=== PATIENT | female | born 1990 | race African-American/Black ===

== ENCOUNTER 2017-06-17 09:27 | Emergency (ER) | payer MEDICAID, OTHER ==
[2017-06-17 09:28] VITALS: BP 150/92; PULSE 92; RESP 15; TEMP 98.2; O2SAT 98
[2017-06-17] MEDS ORDERED: SODIUM CHLORIDE 0.9% FLUSH 10 ML FLUSH IV FLUSH PRN (09:45)
--- NOTE | 2017-06-17 09:53 | PD ---
HPI Chief Complaint: Related Problem Time Seen by Provider: 09:43 Travel History International Travel<30 days: No Contact w/Intl Traveler<30days: No Traveled to known affect area: No History of Present Illness HPI patient was seen back in april when she had an ultrasound and quant hcg of 800's, at that point a left complex ovarian cyst noted unknown if ectopic. patient was advised to return for reevaluation or see obgyn...pt did neither. pt states pain stopped so she didn't seek any further evaluation. patient now returns here for left area pain, light, sharp, 4/10, nonradiating, onset about 2hrs ago. no alleviating/aggravating factors chart and rn notes reviewed pcp none pmhx denies pshx denies all: nkda PFSH Past Medical History Immunizations Current: Yes ?: Unknown Social History Alcohol Use: No Tobacco Use: No Substance Use: No Allergies-Medications (Allergen,Severity, Reaction): Coded Allergies: No Known Allergies (Unverified , 05/17/17) Reported Meds & Prescriptions Reported Meds & Active Scripts Active Ultram (Tramadol HCl) 50 Mg Tab 50 Mg PO Q6H PRN Review of Systems Except as stated in HPI: all other systems reviewed are Neg General / Constitutional: No: Fever Eyes: No: Visual changes HENT: No: Headaches Cardiovascular: No: Chest Pain or Discomfort Respiratory: No: Shortness of Breath Gastrointestinal: Positive: Abdominal Pain Genitourinary: No: Dysuria Musculoskeletal: No: Pain Skin: No Rash Neurologic: No: Weakness Psychiatric: No: Depression Endocrine: No: Polydipsia Hematologic/Lymphatic: No: Easy Bruising Physical Exam Narrative GENERAL: SKIN: Warm and dry. HEAD: Atraumatic. Normocephalic. EYES: Pupils equal and round. No scleral icterus. No injection or drainage. ENT: No nasal bleeding or discharge. Mucous membranes pink and moist. NECK: Trachea midline. No JVD. CARDIOVASCULAR: Regular rate and rhythm. RESPIRATORY: No accessory muscle use. Clear to auscultation. Breath sounds equal bilaterally. GASTROINTESTINAL: Abdomen soft, non-tender, nondistended. MUSCULOSKELETAL: Extremities without clubbing, cyanosis, or edema. No obvious deformities. NEUROLOGICAL: Awake and alert. No obvious cranial nerve deficits. Motor grossly within normal limits. Five out of 5 muscle strength in the arms and legs. Normal speech. PSYCHIATRIC: Appropriate mood and affect; insight and judgment normal. Data Data Last Documented VS Vital Signs Date Time Temp Pulse Resp B/P (MAP) Pulse Ox O2 Delivery O2 Flow Rate FiO2 06/17/17 09:28 98.2 92 15 150/92 (111) 98 Orders Orders Basic Metabolic Panel (Bmp) (06/17/17 09:42) Beta Hcg (Quant/Titer) (06/17/17 09:42) Complete Blood Count With Diff (06/17/17 09:42) Iv Access Insert/Monitor (06/17/17 09:42) Ecg Monitoring (06/17/17 09:42) Oximetry (06/17/17 09:42) NPO (06/17/17 09:42) Sodium Chloride 0.9% Flush (Ns Flush) (06/17/17 09:45) Ed Urine Pregnancytest Poc (06/17/17 09:42) Us Pelvis (Ques Pr/Ect)W Trans (06/17/17 ) Mandatory Outpatient Referral (06/17/17 13:14) Labs Laboratory Tests Test 06/17/17 10:05 White Blood Count 4.7 TH/MM3 Red Blood Count 3.52 MIL/MM3 Hemoglobin 11.4 GM/DL Hematocrit 34.0 % Mean Corpuscular Volume 96.5 FL Mean Corpuscular Hemoglobin 32.5 PG Mean Corpuscular Hemoglobin Concent 33.7 % Red Cell Distribution Width 12.8 % Platelet Count 204 TH/MM3 Mean Platelet Volume 10.3 FL Neutrophils (%) (Auto) 67.5 % Lymphocytes (%) (Auto) 24.0 % Monocytes (%) (Auto) 6.2 % Eosinophils (%) (Auto) 1.7 % Basophils (%) (Auto) 0.6 % Neutrophils # (Auto) 3.1 TH/MM3 Lymphocytes # (Auto) 1.1 TH/MM3 Monocytes # (Auto) 0.3 TH/MM3 Eosinophils # (Auto) 0.1 TH/MM3 Basophils # (Auto) 0.0 TH/MM3 CBC Comment DIFF FINAL Differential Comment Blood Urea Nitrogen 6 MG/DL Creatinine 0.65 MG/DL Random Glucose 86 MG/DL Calcium Level 8.6 MG/DL Sodium Level 139 MEQ/L Potassium Level 3.6 MEQ/L Chloride Level 106 MEQ/L Carbon Dioxide Level 30.6 MEQ/L Anion Gap 2 MEQ/L Estimat Glomerular Filtration Rate 131 ML/MIN Human Chorionic Gonadotropin, Quant 111 MIU/ML MDM Medical Decision Making Medical Screen Exam Complete: Yes Emergency Medical Condition: Yes Medical Record Reviewed: Yes Differential Diagnosis ectopic v persistent ovarian cyst v toa v torsion v uti Narrative Course QUANT HCG IS NOW 111, NO IUP AND THE LEFT ADNEXA HYPEREMIC AREA IS STILL PRESENT. WILL CONTACT AIRLINE FLIGHT ATTENDANT TO DISCUSS FURTHER Physician Communication Physician Communication DISCUSSED WITH DR FOSTER , WHO RECC OUTPATIENT FOLLOWUP Diagnosis Primary Impression: Miscarriage Additional Impression: LEFT ADNEXAL CYST Admitting Information Admitting Physician Requests: Case Management (YOU WILL BE CONTACTED TO RECEIVE INFORMATION ABOUT AIRLINE FLIGHT ATTENDANT SPECIALIST) Patient Instructions: General Instructions, Miscarriage (ED) Scripts Tramadol (Ultram) 50 Mg Tab 50 MG PO Q6H Y for PAIN, #15 TAB 0 Refills Prov: Robert North MD 06/17/17 Disposition: 01 DISCHARGE HOME Condition: Stable Robert North MD Jun 17, 2017 09:53
[2017-06-17 11:46] LABS: AUTOMATED NEUTROPHIL # 3.1 TH/MM3 (1.8-7.7); BASOPHIL % 0.6 % (0.0-2.0); EOSINOPHIL # 0.1 TH/MM3 (0-0.4); EOSINOPHIL % 1.7 % (0.0-4.0); HEMO FLAGS DIFF FINAL; LYMPHOCYTE # 1.1 TH/MM3 (1.0-4.8); MEAN CELL VOLUME 96.5 FL (80.0-100.0); MEAN CORPUSCULAR HEMOGLOBIN 32.5 PG (27.0-34.0); MEAN CORPUSCULAR HGB CONC 33.7 % (32.0-36.0); MONO % 6.2 % (0.0-8.0); NEUT % 67.5 % (16.0-70.0); PLATELET COUNT 204 TH/MM3 (150-450); RED BLOOD COUNT 3.52 MIL/MM3 (4.00-5.30); RED CELL DISTRIBUTION WIDTH 12.8 % (11.6-17.2); WHITE BLOOD COUNT 4.7 TH/MM3 (4.0-11.0)
[2017-06-17 12:14] LABS: BICARBONATE 30.6 MEQ/L (21.0-32.0); POTASSIUM 3.6 MEQ/L (3.5-5.1)
--- NOTE | 2017-06-17 12:34 | RADRPT ---
EXAM DATE/TIME: 06/17/2017 10:22 [facility] COMPARISON: US PELVIS (QUEST PREG/ECTOPIC) W/TRANSVAG, May 17, 2017, 9:43. INDICATIONS : Left pelvic pain and bleeding for 2 weeks. LAB(S): Beta-hC MEDICAL HISTORY : . Left pelvic pain and bleeding for 2 weeks. SURGICAL HISTORY : None. ENCOUNTER: Subsequent ACUITY: 1 month PAIN SCORE: 4/10 LOCATION: Bilateral pelvis MEASUREMENTS: UTERUS: 8.7 x 3.7 x 4.9 cm ENDOMETRIAL STRIPE: 6 mm RIGHT OVARY: 3.3 x 3.7 x 3.3 cm LEFT OVARY: 3.8 x 3.5 x 3.2 cm FREE FLUID: Yes Cul-de-sac FINDINGS: UTERUS: The myometrium has homogeneous echotexture without mass. The gestational sac is not identified. The re is a small amount of fluid within the endometrial cavity. RIGHT OVARY: There is a dominant cyst in the right ovary, anechoic, with good through transmission which measures 1.1 x 1.2 cm. LEFT OVARY: There is a heterogeneous echotexture to the left ovary and, on color Doppler, there is a vessel which appears to extend centrally and to the ovary. No cystic areas seen. No adnexal fluid. MISCELLANEOUS: Moderate amount of free fluid in the cul-de-sac CONCLUSION: 1. One intrauterine cannot be identified by ultrasound. Please note that the quantitative beta hCG is only 111. 2. There is a moderate amount of free fluid in the cul-de-sac and there is some hyperemia in the myrna on of the left adnexa. An ectopic cannot be excluded, but please note that a prior ultraso und of the pelvis on 05/17/17 had demonstrated a similar complex cystic hyperemic abnormality in the l eft adnexa. 3. Obstetrical, gynecologic evaluation and followup is recommended. Naveen Hinojosa MD on June 17, 2017 at 12:28 Board Certified Radiologist. This report was verified electronically.
[2017-06-17] MEDS ORDERED: ULTR50TA5 PO (13:11)
== END 2017-06-17 14:10 | disposition home or self-care (01) ==
LOC: NEPE 09:27
DX: O03.9 Complete or unspecified spontaneous abortion without complication (principal); N83.292 Other ovarian cyst, left side
CPT/HCPCS: 76700; 76817; 80048; 84702; 84703; 85025; 99284

== ENCOUNTER 2017-07-13 17:08 | Emergency (ER) | payer MEDICAID, OTHER ==
[~2017-07-13] VITALS: Ht 152.4 cm; Wt 76.0 kg
[~2017-07-13 17:08] MED LIST: TRAM50 PO
[2017-07-13 17:15] VITALS: BP 153/93; PULSE 75; RESP 16; TEMP 97.6; O2SAT 99
[2017-07-13] MEDS ORDERED: TETANUS/DIPHTHERIA TOXOID ADULT 0.5 ML VIAL IM ONE (17:30)
--- NOTE | 2017-07-13 17:31 | PD ---
HPI Chief Complaint: Skin Problem Time Seen by Provider: 17:24 Travel History International Travel<30 days: No Contact w/Intl Traveler<30days: No Traveled to known affect area: No History of Present Illness HPI The patient is a 26-year-old after Citizen [place] female who presents to the emergency department after she accidentally cut the top of her head while cutting her hair. The patient states he has to that occurred 2 days ago, she was cutting with a edna scissors, neck the top of her scalp. She states it bled initially but is currently stopped. She now states she has a new weed in place and I am unable to visualize the spot where she cut herself. Incidentally , the patient is also requesting a test. She states she's been having some generalized weakness for a week and would like a test. She has not taken a home test because financially she was unable to afford it. She denies any current vaginal bleeding or discharge, denies any lower abdominal pain. The patient states she had a miscarriage in March. [facility] Past Medical History Medical History: Denies Significant Hx Diminished Hearing: No Immunizations Current: Yes Tetanus Vaccination: > 5 Years ?: Unknown LMP: OCT Social History Alcohol Use: No Tobacco Use: No Substance Use: No Allergies-Medications (Allergen,Severity, Reaction): Coded Allergies: No Known Allergies (Unverified , 05/17/17) Reported Meds & Prescriptions Reported Meds & Active Scripts Active No Active Prescriptions or Reported Medications Review of Systems Except as stated in HPI: all other systems reviewed are Neg Genitourinary: Positive: Other (requesting a test.) Musculoskeletal: Positive: Weakness Skin: Positive Other (as noted in the history of present illness) Physical Exam Narrative GENERAL: Awake, alert, nontoxic-appearing 26-year-old female appears her stated age is in no acute respiratory distress. SKIN: Focused skin assessment warm/dry. HEAD: Atraumatic. Normocephalic. The patient would not remove the skull, states she has been here we've in place and I would be unable to visualize the laceration. EYES: No injection or drainage. ENT: No nasal bleeding or discharge. Mucous membranes pink and moist. NECK: Trachea midline. No JVD. MUSCULOSKELETAL: No obvious deformities. No clubbing. No cyanosis. No edema. NEUROLOGICAL: Awake and alert. No obvious cranial nerve deficits. Motor grossly within normal limits. Normal speech. PSYCHIATRIC: Appropriate mood and affect; insight and judgment normal. Data Data Last Documented VS Vital Signs Date Time Temp Pulse Resp B/P (MAP) Pulse Ox O2 Delivery O2 Flow Rate FiO2 07/13/17 17:15 97.6 75 16 153/93 (113) 99 Orders Orders Tetanus/Diphtheria Tox Adult (Tetanus/Di (07/13/17 17:30) Ed Urine Pregnancytest Poc (07/13/17 17:26) [facility] Medical Decision Making Medical Screen Exam Complete: Yes Emergency Medical Condition: Yes Medical Record Reviewed: Yes Differential Diagnosis Differential diagnosis includes laceration, abrasion, contusion, . Narrative Course The patient's tetanus shot was updated. A bedside UA test was obtained. Bedside UA test was negative. The patient is advised to follow-up with her primary physician. Return if symptoms worsen or progress. Diagnosis Primary Impression: Puncture wound Patient Instructions: General Instructions Additional Instructions: Wound care instructions. Follow-up with her primary physician. Return if symptoms worsen or progress. Scripts No Active Prescriptions or Reported Meds Disposition: 01 DISCHARGE HOME Condition: Stable Lenin Anderson MD Jul 13, 2017 17:31
== END 2017-07-13 17:59 | disposition home or self-care (01) ==
LOC: PHEFT 17:08
DX: S01.03XA Puncture wound without foreign body of scalp, initial encounter (principal); R53.1 Weakness; W27.2XXA Contact with scissors, initial encounter; Y93.E8 Activity, other personal hygiene; Z23 Encounter for immunization
CPT/HCPCS: 84703; 90471; 90714; 96372

== ENCOUNTER 2017-09-10 07:44 | Emergency (ER) | payer OTHER ==
[~2017-09-10] VITALS: Ht 152.4 cm; Wt 82.0 kg
[2017-09-10 07:54] VITALS: BP 145/92; PULSE 14; PULSE 98; RESP 16; TEMP 98.1; O2SAT 99
[2017-09-10] MEDS ORDERED: FLUC150T PO (08:26)
--- NOTE | 2017-09-10 08:27 | PD ---
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 denies recent abx use. denies any actual foul smelling or dislocored vaginal d/c. denies fever/abd pain/back pain/n/v/d/ PFSH Past Medical History Diminished Hearing: No Immunizations Current: Yes ?: Unknown Social History Alcohol Use: Yes (OCC) Tobacco Use: Yes Substance Use: No Allergies-Medications (Allergen,Severity, Reaction): Coded Allergies: No Known Allergies (Verified Adverse Reaction, Unknown, 09/10/17) Reported Meds & Prescriptions Reported Meds & Active Scripts Active Fluconazole 150 Mg Tab 150 Mg PO ONCE Review of Systems Except as stated in HPI: all other systems reviewed are Neg General / Constitutional: No: Fever Eyes: No: Visual changes HENT: No: Headaches Cardiovascular: No: Chest Pain or Discomfort Respiratory: No: Shortness of Breath Gastrointestinal: No: Abdominal Pain Genitourinary: Positive: Other (white vag d/c) Musculoskeletal: No: Pain Skin: No Rash Neurologic: No: Weakness Psychiatric: No: Depression Endocrine: No: Polydipsia Hematologic/Lymphatic: No: Easy Bruising Physical Exam Narrative GENERAL: SKIN: Warm and dry. HEAD: Atraumatic. Normocephalic. EYES: Pupils equal and round. No scleral icterus. No injection or drainage. ENT: No nasal bleeding or discharge. Mucous membranes pink and moist. NECK: Trachea midline. No JVD. CARDIOVASCULAR: Regular rate and rhythm. RESPIRATORY: No accessory muscle use. Clear to auscultation. Breath sounds equal bilaterally. GASTROINTESTINAL: Abdomen soft, non-tender, nondistended. 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 No obvious deformities. NEUROLOGICAL: Awake and alert. No obvious cranial nerve deficits. Motor grossly within normal limits. Five out of 5 muscle strength in the arms and legs. Normal speech. PSYCHIATRIC: Appropriate mood and affect; insight and judgment normal. Data Data Last Documented VS Vital Signs Date Time Temp Pulse Resp B/P (MAP) Pulse Ox O2 Delivery O2 Flow Rate FiO2 09/10/17 07:54 98.1 98 16 145/92 (109) 99 Orders Orders Ed Discharge Order (09/10/17 08:28) MDM Medical Decision Making Medical Screen Exam Complete: Yes Emergency Medical Condition: Yes Medical Record Reviewed: Yes Differential Diagnosis related v yeast infection v gc v chlam Narrative Course collected and sent out gc, chlam, ua, for testing but will not await results...will be empiricallly treated for yeast infection....and neg pregn Diagnosis Primary Impression: intravaginal candidiasis Additional Instructions: use over the counter gyne-lotrimin as well for a week as well as your prescription diflucan Scripts Fluconazole (Fluconazole) 150 Mg Tab 150 MG PO ONCE for Infection, #1 TAB 0 Refills Prov: Robert North MD 09/10/17 Disposition: 01 DISCHARGE HOME Condition: Stable Robert North MD Sep 10, 2017 08:27
[2017-09-10 09:07] LABS: BACTERIA, URINE RARE /hpf; BILIRUBIN, URINE NEG (NEG); BLOOD, URINE SMALL (NEG); GLUCOSE,URINE NEG (NEG); KETONE, URINE NEG (NEG); MUCUS URINE FEW /lpf (OCC); NITRITE,URINE NEG (NEG); SQUAMOUS EPITHELIAL CELL URINE 40 /hpf (0-5); URINE COLOR YELLOW (YELLW/STRAW); URINE LEUKOCYTE ESTERASE LARGE (NEG)
[2017-09-10] MEDS ORDERED: MACR100C2 PO (09:34)
[2017-09-10 09:39] VITALS: BP 158/84
== END 2017-09-10 09:48 | disposition home or self-care (01) ==
LOC: NEPE 07:44
DX: B37.3 Candidiasis of vulva and vagina (principal); Z72.0 Tobacco use; Z79.899 Other long term (current) drug therapy
CPT/HCPCS: 81001; 84703; 87086; 87210; 87491; 87591; 99283

== ENCOUNTER 2017-10-03 15:23 | Emergency (ER) | payer OTHER ==
[~2017-10-03] VITALS: Ht 152.4 cm; Wt 93.4 kg
[~2017-10-03 15:23] MED LIST changes: +FLUC150T PO; +MACR100C2 PO; -TRAM50 PO
[2017-10-03 15:27] VITALS: BP 140/71; PULSE 73; RESP 16; TEMP 97; O2SAT 97
[2017-10-03] MEDS ORDERED: MUPI2%T TOPICAL (15:48)
--- NOTE | 2017-10-03 15:49 | PD ---
HPI Chief Complaint: Injury Time Seen by Provider: 15:33 Travel History International Travel<30 days: No Contact w/Intl Traveler<30days: No Traveled to known affect area: No History of Present Illness HPI This is a 18-year-old female here for evaluation of facial injury. She reports while getting out of shower she slipped falling forward hitting her face on the bathroom door. She denies loss of consciousness. She denies falling to the ground. She has pain in her forehead and a small abrasion to her nose. No headache. No visual changes. No epistaxis. No neck pain. No paresthesias or weakness of the extremities. Symptoms severity mild. Aggravated by palpation of the area. PFSH Past Medical History Medical History: Denies Significant Hx Diminished Hearing: No Immunizations Current: Yes ?: Not LMP: 09/28/17 Social History Alcohol Use: Yes ([facility]) Tobacco Use: Yes Substance Use: No Allergies-Medications (Allergen,Severity, Reaction): Coded Allergies: No Known Allergies (Verified Adverse Reaction, Unknown, 10/03/17) Reported Meds & Prescriptions Reported Meds & Active Scripts Active Bactroban Topical (Mupirocin) 22 Gm Cream 1 Applic TOPICAL BID Macrobid (Nitrofurantoin Monohydrate Macrocrystals) 100 Mg Capsule 100 Mg PO BID 5 Days Fluconazole 150 Mg Tab 150 Mg PO ONCE Review of Systems Except as stated in HPI: all other systems reviewed are Neg Eyes: No: Visual changes HENT: No: Headaches Cardiovascular: No: Chest Pain or Discomfort Respiratory: No: Shortness of Breath Gastrointestinal: No: Abdominal Pain Genitourinary: No: Dysuria Musculoskeletal: No: Pain Skin: No Rash Neurologic: No: Weakness Physical Exam Narrative GENERAL: Alert and well-appearing 18-year-old female SKIN: Warm and dry. Small 1 cm superficial abrasion to the right naris HEAD: Normocephalic. Mild tenderness to the left forehead. No hematoma. No palpable fracture. EYES: Pupils equal, round, reactive. EOMs intact. No injection or drainage. Orbital bones are nontender. NOSE: No deformity. Mild right nasal bone tenderness. No crepitus. No septal hematoma. No blood or drainage. NECK: Supple, trachea midline. No cervical midline tenderness. CARDIOVASCULAR: Regular rate and rhythm RESPIRATORY: Breath sounds equal bilaterally. No accessory muscle use. GASTROINTESTINAL: Abdomen soft, non-tender, nondistended. MUSCULOSKELETAL: No bony tenderness. No cyanosis, or edema. Normal strength and sensation of upper and lower extremity is. BACK: Nontender without obvious deformity. No CVA tenderness. Data Data Last Documented VS Vital Signs Date Time Temp Pulse Resp B/P (MAP) Pulse Ox O2 Delivery O2 Flow Rate FiO2 10/03/17 15:27 97.0 73 16 140/71 (94) 97 MDM Medical Decision Making Medical Screen Exam Complete: Yes Emergency Medical Condition: Yes Differential Diagnosis Facial contusion, facial fracture, abrasion Narrative Course 18-year-old female here for evaluation of facial contusion. She is well- appearing. She is a normal neurologic exam. She has mild tenderness to the right nasal bridge. Nasal bone x-rays were offered. Patient declined. Her injuries appear minor. She'll be treated for facial contusions Diagnosis Primary Impression: Facial contusion Qualified Codes: S00.83XA - Contusion of other part of head, initial encounter Referrals: Primary Care Physician Additional Instructions: Face the area. Tylenol or ibuprofen for pain. Apply antibiotic ointment to the abrasion. Follow-up with her primary doctor Return if you may or worsening symptoms Disposition: 01 DISCHARGE HOME Condition: Stable Altagracia Almazan Oct 03, 2017 15:49
== END 2017-10-03 16:00 | disposition home or self-care (01) ==
LOC: PHEFT 15:23
DX: S00.83XA Contusion of other part of head, initial encounter (principal); W01.198A Fall on same level from slipping, tripping and stumbling with subsequent striking against other object, initial encounter; Y92.002 Bathroom of unspecified non-institutional (private) residence as the place of occurrence of the external cause; Z72.0 Tobacco use; Z79.899 Other long term (current) drug therapy
CPT/HCPCS: 99282

== ENCOUNTER 2017-10-10 17:07 | Emergency (ER) | payer OTHER ==
[~2017-10-10] VITALS: Ht 152.4 cm; Wt 75.0 kg
[2017-10-10 17:10] VITALS: BP 140/75; PULSE 90; RESP 14; TEMP 97.9; O2SAT 99
[2017-10-10] MEDS ORDERED: PERM5CRE11 TOPICAL (18:55)
--- NOTE | 2017-10-10 18:55 | PD ---
HPI Chief Complaint: Skin Problem Time Seen by Provider: 18:47 Travel History International Travel<30 days: No Contact w/Intl Traveler<30days: No History of Present Illness HPI 26-year-old female complains of scabies exposure. Patient states that her boyfriend was treated with scabies yesterday. Patient has been washing question linens and clothes at home with hot water. Patient denies any itching rash. Patient denies any chance of being . PFSH Past Medical History Medical History: Denies Significant Hx Diminished Hearing: No Immunizations Current: Yes Tetanus Vaccination: < 5 Years Influenza Vaccination: No ?: Not LMP: 09/18/17 Past Surgical History Surgical History: No Previous Surgery Social History Alcohol Use: Yes (OCCASIONAL) Tobacco Use: No Substance Use: No Allergies-Medications (Allergen,Severity, Reaction): Coded Allergies: No Known Allergies (Verified Adverse Reaction, Unknown, 10/03/17) Reported Meds & Prescriptions Reported Meds & Active Scripts Active Review of Systems General / Constitutional: No: Fever Eyes: No: Visual changes HENT: No: Headaches Cardiovascular: No: Chest Pain or Discomfort Respiratory: No: Shortness of Breath Gastrointestinal: No: Abdominal Pain Genitourinary: No: Dysuria Musculoskeletal: No: Pain Skin: No Rash Neurologic: No: Weakness Psychiatric: No: Depression Endocrine: No: Polydipsia Hematologic/Lymphatic: No: Easy Bruising Physical Exam Narrative GENERAL: Well-nourished, well-developed patient. SKIN: Focused skin assessment warm/dry. HEAD: Normocephalic. EYES: No scleral icterus. No injection or drainage. NECK: Supple, trachea midline. No JVD or lymphadenopathy. CARDIOVASCULAR: Regular rate and rhythm without murmurs, gallops, or rubs. RESPIRATORY: Breath sounds equal bilaterally. No accessory muscle use. GASTROINTESTINAL: Abdomen soft, non-tender, nondistended. MUSCULOSKELETAL: No cyanosis, or edema. BACK: Nontender without obvious deformity. No CVA tenderness. Neurologic exam normal. Data Data Last Documented VS Vital Signs Date Time Temp Pulse Resp B/P (MAP) Pulse Ox O2 Delivery O2 Flow Rate FiO2 10/10/17 17:10 97.9 90 14 140/75 (96) 99 Room Air MDM Medical Decision Making Medical Screen Exam Complete: Yes Emergency Medical Condition: Yes Differential Diagnosis Differential diagnosis including scabies exposure. Narrative Course 26-year-old female requesting medication for scabies exposure. Patient is asymptomatic. Diagnosis Primary Impression: Scabies exposure Patient Instructions: General Instructions Additional Instructions: Elimite cream as directed. Follow-up with personal physician. Med/Other Pt SpecificInfo: Prescription(s) given Scripts Permethrin Topical (Elimite Topical) 5% Cream 1 APPLIC TOPICAL ONCE for Scabies, #1 TUBE 0 Refills Prov: Ori Groves MD 10/10/17 Disposition: 01 DISCHARGE HOME Condition: Stable Ori Groves MD Oct 10, 2017 18:55
== END 2017-10-10 19:19 | disposition home or self-care (01) ==
LOC: NEPD 17:07
DX: Z20.7 Contact with and (suspected) exposure to pediculosis, acariasis and other infestations (principal)
CPT/HCPCS: 99283